=== PATIENT | female | born 1980 | race Caucasian/White ===

== ENCOUNTER → 2017-04-04 | Outpatient (CLI) | payer OTHER ==
[~2017-04-04] MED LIST: DOCU-94 PO; ENOX40IN SQ; MTR600X PO; PRENTAB26 PO; RANI15SY5
== END | disposition home or self-care (01) ==
LOC: C.PAPS 09:57
PROVIDERS: ATTEND Obstetrics & Gynecology
DX: Z01.419 Encounter for gynecological examination (general) (routine) without abnormal findings (principal)